=== PATIENT | female | born 1960 | race Caucasian/White ===

== ENCOUNTER 2019-07-26 12:39 | Emergency (ER) | payer MEDICARE, MEDICAID ==
[~2019-07-26] VITALS: Ht 162.6 cm; Wt 67.8 kg
--- NOTE | 2019-07-26 12:45 | NUR ---
Assumed c/o pt upon arrival to -[facility]. Pt arrived via [facility] from home with onset of stroke s/s at 1045 this morning. Taken straight to CT/CTA head. Dr. Barajas on telerobot ready for assessment.
[2019-07-26] MEDS ORDERED: OMNIPAQUE 350 MG/ML, 100ML BOTTLE ONE ×2 (13:00→13:10)
--- NOTE | 2019-07-26 13:04 | NUR ---
PT CARE FLIGHT FROM [place] WITH STROKE LIKE SYMPTOMS. PT HAS R SIDE DEFICIT, FLACID RUE,RLE. PT WITH R SIDE PTOSIS AND APHASIC. LAST WELL KNOWN TIME 1045 THIS AM. PT TO ER DOOR FOR ERMD EVAL, PT THEN TO CT. PT BACK TO FOR TELE NEURO EVAL. PT WITH NO FAMILY PRESENT, UNABLE TO CONFIRM/DENY IF PT TAKING BLOOD THINNERS, PT NOT CANDIDATE FOR TPA AT THIS TIME. ERMD CONFIRMING RESULTS OF CT WITH NEUROLOGIST. PT WITH LARGE L M1 CLOT, PT TO TRANSFER TO [facility] FOR THROMBECTOMY.
[2019-07-26 13:13] LABS: BASOPHILS # (AUTO) 0.15 x10^3/uL (0-0.1); BASOPHILS % (AUTO) 1 % (0-1); EOSINOPHILS # (AUTO) 0.18 x10^3/uL (0-0.4); EOSINOPHILS % (AUTO) 1 % (1-7); LYMPHOCYTES % (AUTO) 22 % (22-44); MD NO; MEAN CORPUSCULAR HEMOGLOBIN 30.7 pg (27.0-34.8); MEAN CORPUSCULAR HGB CONC 33.1 g/dL (32.4-35.8); MEAN CORPUSCULAR VOLUME 92.6 fL (80-100); MEAN PLATELET VOLUME 8.2 fL (7.4-10.4); MONOCYTES # (AUTO) 1.01 x10^3/uL (0.2-0.8); MONOCYTES % (AUTO) 7 % (2-9); NEUTROPHILS # (AUTO) 9.88 x10^3/uL (1.8-6.8); NEUTROPHILS % (AUTO) 69 % (42-75); PLATELET COUNT 408 x10^3/uL (130-400); RED BLOOD COUNT 4.22 x10^6/uL (3.82-5.3); RED CELL DISTRIBUTION WIDTH 13.3 % (9.6-15.2)
[2019-07-26 13:22] LABS: INTERNATIONAL NORMALIZED RATIO 0.89 (0.93-1.1); PROTHROMBIN TIME 9.4 Seconds (9.6-11.5)
--- NOTE | 2019-07-26 13:24 | NUR ---
Per Dr. Barajas, pt has a m1 occlusion and will not receive TPA. Instead, needs to be transferred to [facility] for thrombectomy.
[2019-07-26 13:25] VITALS: BP 137/72
[2019-07-26] MEDS ORDERED: ASPIRIN 300 MG SUPP PR ONE (13:30)
--- NOTE | 2019-07-26 13:35 | NUR ---
Report called to [facility]. Informed based on old hospital records from [facility] that pt has an additional med allergies to asa (listed as sensitivity) and codeine. Pt has already recieved asa pr prior to knowledge about sensitivity/allergy. Receiving RN informed to watch for rxn, [facility] here for transport also aware & will watch for rxn. Pt transferred out via stretcher to ambulance.
[2019-07-26] MEDS ORDERED: ALTEPLASE 1 MG/ML, 100ML ONE (14:04)
== END 2019-07-26 21:38 | disposition short-term general hospital (02) ==
LOC: ED 12:56
DX: I63.312 Cerebral infarction due to thrombosis of left middle cerebral artery (principal); I10 Essential (primary) hypertension; F17.210 Nicotine dependence, cigarettes, uncomplicated
CPT/HCPCS: 36415; 70450; 70496; 70498; 80047; 85025; 85610; 85730; 93005; 99291; Q9967